=== PATIENT | male | born 1970 | race Caucasian/White ===

== ENCOUNTER 2016-12-08 15:20 | Inpatient (IN) | payer OTHER ==
[2016-12-08 17:38] VITALS: BMI 31.9
--- NOTE | 2016-12-08 17:59 | HP ---
Admission ROS [facility] Chief Complaint: Alcohol dependence Allergies/Adverse Reactions: Allergies Allergy/AdvReac Type Severity Reaction Status Date / Time bupropion HCl Allergy Severe Rash Verified 12/08/16 17:52 [From Wellbutrin] History of Present Illness: 46 years old male with history of alcohol and nicotine dependence is admitted for rehab. Patient has medical history of Asthma, GERD, Depression, Anxiety disorder and suicide attempt in 2008. Patient denies suicidal ideation at this time. Exam Limitations: No Limitations - Ebola screening Have you traveled outside of the country in the last 21 days: No (N) Have you had contact with anyone from an Ebola affected area: No Have you been sick,other than usual withdrawal symptoms: No Do you have a fever: No - Review of Systems Constitutional: No Symptoms Reported EENT: reports: No Symptoms Reported Respiratory: reports: No Symptoms reported Cardiac: reports: No Symptoms Reported GI: reports: No Symptoms Reported : reports: No Symptoms Reported Musculoskeletal: reports: No Symptoms Reported Integumentary: reports: No Symptoms Reported Neuro: reports: No Symptoms reported Endocrine: reports: No Symptoms Reported Hematology: reports: No Symptoms Reported Psychiatric: reports: No Sypmtoms Reported, Mood/Affect Appropiate, Orientated x3 Other Systems: Reviewed and Negative Patient History - Patient Medical History Hx Anemia: No Hx Asthma: Yes (MDI and singulair) Hx Chronic Obstructive Pulmonary Disease (COPD): No Hx Cancer: No Hx Cardiac Disorders: No Hx Congestive Heart Failure: No Hx Hypertension: No Hx Hypercholesterolemia: No HX Cerebrovascular Accident: No Hx Seizures: No Hx Diabetes: No Hx Gastrointestinal Disorders: Yes (GERD) Hx Liver Disease: No Hx Genitourinary Disorders: No Hx Sexually Transmitted Disorders: Yes (Genital Warts) Hx Renal Disease (ESRD): No Hx Thyroid Disease: No Hx Human Immunodeficiency Virus (HIV): No (Negative 2016) Hx Hepatitis C: No (Negative 2016) Hx Depression: Yes Hx Suicide Attempt: Yes (2008. Denies suicidal ideation) Hx Bipolar Disorder: No Hx Schizophrenia: No - Patient Surgical History Past Surgical History: No - PPD History Previous Implant?: Yes Documented Results: Negative w/o proof PPD to be Administered?: Yes - Reproductive History Patient is a Female of Child Bearing Age (11 -55 yrs old): No ([place]) - Smoking Cessation Smoking history: Current every day smoker Have you smoked in the past 12 months: Yes Aproximately how many cigarettes per day: 20 Hx Chewing Tobacco Use: No Initiated information on smoking cessation: Yes 'Breaking Loose' booklet given: 12/08/16 - Substance & Tx. History Hx Alcohol Use: Yes (Beer) Hx Substance Use: Yes (Cocaine) Substance Use Type: Alcohol, Cocaine Hx Substance Use Treatment: Yes ([facility] Outpatient treatment) - Substances Abused Alcohol Route: Oral Frequency: Daily Amount used: 2-3 20 ounce beers Age of first use: 37 Date of Last Use: 12/08/16 Cocaine Route: Smoking Frequency: 1-2 times per week Amount used: $40 Age of first use: 29 Date of Last Use: 12/05/16 Family Disease History - Family Disease History Family History: Denies Admission Physical Exam [facility] - Vital Signs Vital Signs: Vital Signs - 24 hr 12/08/16 17:35 Temperature 96.9 F L Pulse Rate 94 H Respiratory 18 Rate Blood Pressure 155/89 - Physical General Appearance: Yes: Within Normal Limits HEENTM: Yes: Within Normal Limits, EOMI, Normal ENT Inspection, ANGELICA Respiratory: Yes: Lungs Clear, Normal Breath Sounds Neck: Yes: Supple Breast: Yes: Breast Exam Deferred Cardiology: Yes: Regular Rhythm, Regular Rate, S1, S2 Abdominal: Yes: Normal Bowel Sounds, Soft Genitourinary: Yes: Within Normal Limits Back: Yes: Within Normal Limits Musculoskeletal: Yes: Within Normal Limits Extremities: Yes: Within Normal Limits Neurological: Yes: Fully Oriented, Alert, Normal Response Integumentary: Yes: Within Normal Limits Lymphatic: Yes: Within Normal Limits - Diagnostic (1) Alcohol dependence with uncomplicated withdrawal Current Visit: Yes Status: Chronic (2) Cocaine dependence, uncomplicated Current Visit: Yes Status: Chronic (3) GERD (gastroesophageal reflux disease) Current Visit: Yes Status: Chronic (4) Depression Current Visit: Yes Status: Chronic (5) Asthma Current Visit: Yes Status: Chronic Cleared for Admission [facility] - Detox or Rehab [facility] Level of Care: Observation Bed Claeared for Rehab Admission: Yes [facility] Breath Alcohol Content Breath Alcohol Content: 0 Urine Drug Screen - Results Drug Screen Negative: No Urine Drug Screen Results: RAUL-Cocaine Inpatient Rehab Admission - Initial Determination Are CD services needed?: Yes Free of communicable disease: Yes Not in need of hospitalization: Yes - Rehab Admission Criteria Previous failed treatment: Yes Poor recovery environment: Yes Comorbidities: Yes Lacks judgement: No Patient is meeting Inpatient Rehab admission criteria:: Yes
[2016-12-08] MEDS ORDERED: MAG HYDROX/AL HYDROX/SIMETH 30 ML UNIT-DOSE CUP PO PRN (23:15)
[2016-12-08] MEDS ORDERED: MAGNESIUM CITRATE 300 ML BOTTLE PO PRN (23:15)
[2016-12-08] MEDS ORDERED: MAGNESIUM HYDROX 2400MG/30ML ORAL SUSPENSION 30 ML CUP PO PRN (23:15)
[2016-12-08] MEDS ORDERED: P-EPHED 60MG/TRIPROLIDI 2.5MG TABLET PO PRN (23:15)
[2016-12-08] MEDS ORDERED: guaiFENesin/D-METHORPHAN HB 10 ML UNIT-DOSE CUPS PO PRN (23:15)
[2016-12-08] MEDS ORDERED: MENTHOL/PHENOL 1 EACH UD MM PRN (23:15)
[2016-12-08] MEDS ORDERED: LOPERAMIDE HCL 2 MG CAPSULE PO PRN (23:15)
[2016-12-08] MEDS ORDERED: hydrOXYzine PAMOATE 50 MG CAPSULE (FP) PO PRN (23:15)
[2016-12-08] MEDS ORDERED: NICOTINE POLACRILEX 2 MG GUM BUC PRN (23:24)
[2016-12-08] MEDS ORDERED: traZODone HCL 100 MG TABLET (FP) PO ONE (23:45)
[2016-12-08] MEDS ORDERED: TUBERCULIN PPD 5 TU/0.1ML VIAL ID ONE (23:52)
--- NOTE | 2016-12-09 06:48 | HP ---
Psychiatrist Admission - Data Date of interview: 12/09/16 Admission source: [facility] Identifying data: This is the first [facility] admission for this 46 years old single [place] male, father of a 21years old daughter, unemployed on public assistance, domiciled Medical History: Significant for bronchial asthma, GERD and a history of genital warts. Smokes cigarettes 1ppd Psychiatric History: Reports that his first psychiatric contact was in 2008 when he was admitted to [facility] in [place] for suicidal attempt by cutting his wrist. He was diagnosed with MDD, Anxiety and Borderline Personality Disorder and treated with medications. Reports receiving psychiatric outpatient treatment at [facility] and he is currently prescribed Prozac 60 mg po daily, Buspar 30 mg po BID, Gabapentin 800 mg po TID and Trazadone 100 mg po HS. Told copy writer that he was recently prescribed Naltrexone 25 mg po HS but has not started it yet. Reports history of 2 previous suicidal attempts both in 2008 by cutting his wrist(which led to [facility] inpatient admission) and ingesting pills. At present, reports feeling anxious and sleeping poorly Physical/Sexual Abuse/Trauma History: Denies history of verbal, physical or sexual abuse as well as DV relationship. No service Additional Comment: Reports history of multiple arrests including one felony conviction. Reports being currently on parole till February 2019 Vital Signs: Vital Signs - 24 hr 12/08/16 12/08/16 12/09/16 17:35 22:00 00:41 Temperature 96.9 F L 98.0 F Pulse Rate 94 H 77 Respiratory 18 18 18 Rate Blood Pressure 155/89 131/78 12/09/16 12/09/16 03:40 06:41 Temperature 97.1 F L Pulse Rate 82 Respiratory 18 18 Rate Blood Pressure 109/66 Allergies/Adverse Reactions: Allergies Allergy/AdvReac Type Severity Reaction Status Date / Time bupropion HCl Allergy Severe Rash Verified 12/08/16 17:52 [From Wellbutrin] Date of last physical exam: 12/08/16 Concur with the findings of this exam: Yes - Substance Abuse/Tx History Hx Alcohol Use: Yes Hx Substance Use: Yes Substance Use Type: Alcohol (Started drinking alcohol at age 37, consumes 2-3x 20oz of beer daily. Last drank on 12/08/16), Cocaine (Started smoking crack cocaine at age29, consumes $40 worth 1-2 times weekly. Last smoked on 12/05/16) Hx Substance Use Treatment: Yes (Attends [facility] outpatient program) Mental Status Exam - Mental Status Exam Alert and Oriented to: Time, Place, Person Cognitive Function: Fair Patient Appearance: Disheveled Mood: Anxious Affect: Constricted Patient Behavior: Cooperative Speech Pattern: Clear Voice Loudness: Normal Thought Process: Intact Thought Disorder: Not Present Hallucinations: Denies Suicidal Ideation: Denies Homicidal Ideation: Denies Insight/Judgement: Fair Sleep: Poorly Appetite: Good Muscle strength/Tone: Normal Gait/Station: Normal Psychiatric Findings - Problem List ([place] 1, 2,3) (1) Alcohol dependence Current Visit: Yes Status: Acute (2) Cocaine dependence Current Visit: Yes Status: Acute (3) Nicotine dependence Current Visit: Yes Status: Acute (4) MDD (major depressive disorder), recurrent episode Current Visit: Yes Status: Acute (5) Substance-induced anxiety disorder Current Visit: Yes Status: Acute (6) Substance-induced sleep disorder Current Visit: Yes Status: Acute (7) Asthma Current Visit: Yes Status: Chronic (8) GERD (gastroesophageal reflux disease) Current Visit: Yes Status: Chronic - Initial Treatment Plan Initial Treatment Plan: 1) Continue Prozac 60 mg po daily, Buspar 30 mg po BID, Gabapentin 800 mg po TID and Trazadone 100 mg po HS. 2) Monitor progress
[2016-12-09] MEDS: PRENATAL VITAMINS W/ FOLIC ACID TABLET (FP) PO SCH (09:43)
[2016-12-09] MEDS: RANITIDINE HCL 150 MG TABLET (FP) PO SCH ×2 (09:43→21:10)
[2016-12-09] MEDS: NICOTINE 14 MG/24 HOURS TOPICAL PATCH TD SCH (09:43)
[2016-12-09] MEDS: FLUoxetine HCL 20 MG CAPSULE (FP) PO SCH (11:06)
[2016-12-09] MEDS: GABAPENTIN 400 MG CAPSULE (FP) PO SCH ×3 (15:00→21:10)
[2016-12-09 16:43] LABS: MCH 31.3 pg (25.7-33.7); MCHC 34.2 g/dl (32.0-35.9); MEAN CELL VOLUME 91.4 fl (80-96); MEAN PLT VOLUME 8.5 fl (7.5-11.1); PLATELET COUNT 220 K/MM3 (134-434); RDW 12.9 % (11.9-15.9); WHITE BLOOD COUNT 8.8 K/mm3 (4.0-10.0)
[2016-12-09 16:57] LABS: ALBUMIN 3.3 g/dl (3.4-5.0); ANION GAP 9 (8-16); CALCIUM 8.6 mg/dL (8.5-10.1); CO2 28 mmol/L (21-32); CREATININE 0.9 mg/dL (0.7-1.3); GLUCOSE,RANDOM 186 mg/dL (74-106); SGOT/AST 13 U/L (15-37); SGPT/ALT 27 U/L (12-78)
[2016-12-09 16:59] LABS: ALK PHOS 100 U/L (45-117); BILIRUBIN,TOTAL 0.3 mg/dL (0.2-1.0); TOT PROT 6.6 g/dl (6.4-8.2)
[2016-12-09] MEDS: THIAMINE HCL 100 MG TABLET (FP) PO SCH (21:10)
[2016-12-09] MEDS ORDERED: PATIENT'S OWN MEDICATION (NON-FORMULARY) (Famotidine [Pepcid -] 20 MG) PO SCH (22:00)
[2016-12-10] MEDS: GABAPENTIN 400 MG CAPSULE (FP) PO SCH ×2 (06:29→14:07)
[2016-12-10] MEDS: RANITIDINE HCL 150 MG TABLET (FP) PO SCH ×2 (10:05→21:22)
[2016-12-10] MEDS: NICOTINE 14 MG/24 HOURS TOPICAL PATCH TD SCH (10:05)
[2016-12-10] MEDS: PRENATAL VITAMINS W/ FOLIC ACID TABLET (FP) PO SCH (10:05)
[2016-12-10] MEDS: FLUoxetine HCL 20 MG CAPSULE (FP) PO SCH (10:05)
--- NOTE | 2016-12-10 12:49 | EKG ---
Test Reason : Blood Pressure : / mmHG Vent. Rate : 079 BPM Atrial Rate : 079 BPM P-R Int : 144 ms QRS Dur : 090 ms QT Int : 384 ms P-R-T Axes : 060 050 049 degrees QTc Int : 440 ms NORMAL SINUS RHYTHM NORMAL ECG NO PREVIOUS ECGS AVAILABLE Confirmed by BARBARA SUN, KEVEN ([id number]) on 12/10/2016 12:49:07 PM Referred By: Confirmed By:KEVEN JIMENEZ MD
[2016-12-10] MEDS: ACETAMINOPHEN 325 MG TABLET (FP) PO PRN (14:06)
[2016-12-10] MEDS: THIAMINE HCL 100 MG TABLET (FP) PO SCH (21:22)
[2016-12-10] MEDS: GABAPENTIN 400 MG CAPSULE (FP) PO PRN (21:24)
[2016-12-11] MEDS: PRENATAL VITAMINS W/ FOLIC ACID TABLET (FP) PO SCH (10:08)
[2016-12-11] MEDS: NICOTINE 14 MG/24 HOURS TOPICAL PATCH TD SCH (10:09)
[2016-12-11] MEDS: FLUoxetine HCL 20 MG CAPSULE (FP) PO SCH (10:09)
[2016-12-11] MEDS: RANITIDINE HCL 150 MG TABLET (FP) PO SCH ×2 (10:09→21:23)
[2016-12-11] MEDS: GABAPENTIN 400 MG CAPSULE (FP) PO PRN ×2 (10:11→21:23)
[2016-12-11] MEDS: ACETAMINOPHEN 325 MG TABLET (FP) PO PRN (14:11)
[2016-12-11] MEDS: THIAMINE HCL 100 MG TABLET (FP) PO SCH (21:23)
[2016-12-12] MEDS: GABAPENTIN 400 MG CAPSULE (FP) PO PRN ×3 (07:00→21:20)
[2016-12-12] MEDS: PRENATAL VITAMINS W/ FOLIC ACID TABLET (FP) PO SCH (09:46)
[2016-12-12] MEDS: NICOTINE 14 MG/24 HOURS TOPICAL PATCH TD SCH (09:47)
[2016-12-12] MEDS: RANITIDINE HCL 150 MG TABLET (FP) PO SCH ×2 (09:47→21:19)
[2016-12-12] MEDS: FLUoxetine HCL 20 MG CAPSULE (FP) PO SCH (09:47)
[2016-12-12] MEDS ORDERED: ALBUTEROL SO4 18 GM HFA INHALER IH PRN (14:48)
[2016-12-12] MEDS: THIAMINE HCL 100 MG TABLET (FP) PO SCH (21:19)
[2016-12-13] MEDS: GABAPENTIN 400 MG CAPSULE (FP) PO PRN ×2 (06:15→16:59)
[2016-12-13] MEDS: RANITIDINE HCL 150 MG TABLET (FP) PO SCH ×2 (09:32→21:10)
[2016-12-13] MEDS: PRENATAL VITAMINS W/ FOLIC ACID TABLET (FP) PO SCH (09:32)
[2016-12-13] MEDS: FLUoxetine HCL 20 MG CAPSULE (FP) PO SCH (09:33)
[2016-12-13] MEDS: NICOTINE 14 MG/24 HOURS TOPICAL PATCH TD SCH (09:33)
[2016-12-13] MEDS: THIAMINE HCL 100 MG TABLET (FP) PO SCH (21:10)
[2016-12-13] MEDS: traZODone HCL 100 MG TABLET (FP) PO PRN (21:11)
[2016-12-14] MEDS: GABAPENTIN 400 MG CAPSULE (FP) PO PRN ×2 (06:52→14:13)
[2016-12-14] MEDS: FLUoxetine HCL 20 MG CAPSULE (FP) PO SCH (09:47)
[2016-12-14] MEDS: PRENATAL VITAMINS W/ FOLIC ACID TABLET (FP) PO SCH (09:47)
[2016-12-14] MEDS: RANITIDINE HCL 150 MG TABLET (FP) PO SCH ×2 (09:47→21:19)
[2016-12-14] MEDS: NICOTINE 14 MG/24 HOURS TOPICAL PATCH TD SCH (09:47)
[2016-12-14] MEDS: THIAMINE HCL 100 MG TABLET (FP) PO SCH (21:19)
[2016-12-14] MEDS: traZODone HCL 100 MG TABLET (FP) PO PRN (23:12)
[2016-12-15] MEDS: PRENATAL VITAMINS W/ FOLIC ACID TABLET (FP) PO SCH (09:41)
[2016-12-15] MEDS: RANITIDINE HCL 150 MG TABLET (FP) PO SCH ×2 (09:41→21:24)
[2016-12-15] MEDS: FLUoxetine HCL 20 MG CAPSULE (FP) PO SCH (09:41)
[2016-12-15] MEDS: GABAPENTIN 400 MG CAPSULE (FP) PO PRN ×2 (09:42→21:25)
[2016-12-15] MEDS: NICOTINE 14 MG/24 HOURS TOPICAL PATCH TD SCH (09:42)
[2016-12-15] MEDS: IBUPROFEN 400 MG TABLET (FP) PO PRN (18:58)
[2016-12-15] MEDS: THIAMINE HCL 100 MG TABLET (FP) PO SCH (21:24)
[2016-12-15] MEDS: traZODone HCL 100 MG TABLET (FP) PO PRN (23:47)
[2016-12-16] MEDS: FLUoxetine HCL 20 MG CAPSULE (FP) PO SCH (09:50)
[2016-12-16] MEDS: PRENATAL VITAMINS W/ FOLIC ACID TABLET (FP) PO SCH (09:50)
[2016-12-16] MEDS: RANITIDINE HCL 150 MG TABLET (FP) PO SCH ×2 (09:50→21:13)
[2016-12-16] MEDS: GABAPENTIN 400 MG CAPSULE (FP) PO PRN ×2 (09:50→21:13)
[2016-12-16] MEDS: NICOTINE 14 MG/24 HOURS TOPICAL PATCH TD SCH (09:51)
[2016-12-16] MEDS: THIAMINE HCL 100 MG TABLET (FP) PO SCH (21:13)
[2016-12-17] MEDS: NICOTINE 14 MG/24 HOURS TOPICAL PATCH TD SCH (09:46)
[2016-12-17] MEDS: RANITIDINE HCL 150 MG TABLET (FP) PO SCH ×2 (09:46→21:16)
[2016-12-17] MEDS: PRENATAL VITAMINS W/ FOLIC ACID TABLET (FP) PO SCH (09:46)
[2016-12-17] MEDS: FLUoxetine HCL 20 MG CAPSULE (FP) PO SCH (09:46)
[2016-12-17] MEDS: THIAMINE HCL 100 MG TABLET (FP) PO SCH (21:16)
[2016-12-17] MEDS: GABAPENTIN 400 MG CAPSULE (FP) PO PRN (21:16)
[2016-12-17] MEDS: IBUPROFEN 400 MG TABLET (FP) PO PRN (21:17)
[2016-12-17] MEDS: traZODone HCL 100 MG TABLET (FP) PO PRN (22:35)
[2016-12-18] MEDS ORDERED: AZITHROMYCIN 250 MG TABLET PO ONE (07:30)
--- NOTE | 2016-12-18 07:33 | PN ---
BHS Progress Note Note: ASKED TO SEE PT FOR C/O SORE THROAT. CLIENT REPORTS PAIN WHEN SWALLOWING. DENIES asked to see pt for c/o sore throat. pain when swallowing denies sob. fever, cough Last Vital Signs Temp Pulse Resp BP Pulse Ox 97.3 F L 84 18 120/74 12/18/16 06:33 12/18/16 06:33 12/18/16 06:33 12/18/16 06:33 neck + lad mouth mmm erythematous pharynx l- ctab pharyngitis start z pack
[2016-12-18] MEDS: RANITIDINE HCL 150 MG TABLET (FP) PO SCH ×2 (09:11→21:17)
[2016-12-18] MEDS: FLUoxetine HCL 20 MG CAPSULE (FP) PO SCH (09:11)
[2016-12-18] MEDS: PRENATAL VITAMINS W/ FOLIC ACID TABLET (FP) PO SCH (09:11)
[2016-12-18] MEDS: IBUPROFEN 400 MG TABLET (FP) PO PRN (09:12)
[2016-12-18] MEDS: NICOTINE 14 MG/24 HOURS TOPICAL PATCH TD SCH (09:13)
[2016-12-18] MEDS: GABAPENTIN 400 MG CAPSULE (FP) PO PRN ×2 (10:59→21:17)
[2016-12-18] MEDS: THIAMINE HCL 100 MG TABLET (FP) PO SCH (21:17)
[2016-12-18] MEDS: traZODone HCL 100 MG TABLET (FP) PO PRN (23:27)
[2016-12-19] MEDS: AZITHROMYCIN 250 MG TABLET PO SCH (07:12)
[2016-12-19] MEDS: GABAPENTIN 400 MG CAPSULE (FP) PO PRN ×2 (07:13→18:27)
[2016-12-19] MEDS: FLUoxetine HCL 20 MG CAPSULE (FP) PO SCH (09:54)
[2016-12-19] MEDS: PRENATAL VITAMINS W/ FOLIC ACID TABLET (FP) PO SCH (09:54)
[2016-12-19] MEDS: RANITIDINE HCL 150 MG TABLET (FP) PO SCH ×2 (09:54→21:20)
[2016-12-19] MEDS: NICOTINE 14 MG/24 HOURS TOPICAL PATCH TD SCH (09:55)
[2016-12-19] MEDS: THIAMINE HCL 100 MG TABLET (FP) PO SCH (21:20)
[2016-12-20] MEDS: traZODone HCL 100 MG TABLET (FP) PO PRN ×2 (00:17→23:25)
[2016-12-20] MEDS: AZITHROMYCIN 250 MG TABLET PO SCH (06:59)
[2016-12-20] MEDS: PRENATAL VITAMINS W/ FOLIC ACID TABLET (FP) PO SCH (09:40)
[2016-12-20] MEDS: FLUoxetine HCL 20 MG CAPSULE (FP) PO SCH (09:40)
[2016-12-20] MEDS: RANITIDINE HCL 150 MG TABLET (FP) PO SCH ×2 (09:40→21:11)
[2016-12-20] MEDS: NICOTINE 14 MG/24 HOURS TOPICAL PATCH TD SCH (09:41)
[2016-12-20] MEDS: GABAPENTIN 400 MG CAPSULE (FP) PO PRN (17:32)
[2016-12-20] MEDS: THIAMINE HCL 100 MG TABLET (FP) PO SCH (21:11)
[2016-12-21] MEDS: AZITHROMYCIN 250 MG TABLET PO SCH (06:52)
[2016-12-21] MEDS: GABAPENTIN 400 MG CAPSULE (FP) PO PRN ×2 (09:07→21:12)
[2016-12-21] MEDS: RANITIDINE HCL 150 MG TABLET (FP) PO SCH ×2 (09:46→21:12)
[2016-12-21] MEDS: PRENATAL VITAMINS W/ FOLIC ACID TABLET (FP) PO SCH (09:46)
[2016-12-21] MEDS: NICOTINE 14 MG/24 HOURS TOPICAL PATCH TD SCH (09:46)
[2016-12-21] MEDS: FLUoxetine HCL 20 MG CAPSULE (FP) PO SCH (09:46)
[2016-12-21] MEDS: traZODone HCL 100 MG TABLET (FP) PO PRN (21:13)
[2016-12-21] MEDS: THIAMINE HCL 100 MG TABLET (FP) PO SCH (21:13)
[2016-12-22] MEDS: AZITHROMYCIN 250 MG TABLET PO SCH (07:13)
[2016-12-22] MEDS: PRENATAL VITAMINS W/ FOLIC ACID TABLET (FP) PO SCH (09:30)
[2016-12-22] MEDS: FLUoxetine HCL 20 MG CAPSULE (FP) PO SCH (09:30)
[2016-12-22] MEDS: RANITIDINE HCL 150 MG TABLET (FP) PO SCH ×2 (09:30→21:19)
[2016-12-22] MEDS: NICOTINE 14 MG/24 HOURS TOPICAL PATCH TD SCH (09:31)
[2016-12-22] MEDS: GABAPENTIN 400 MG CAPSULE (FP) PO PRN ×2 (09:31→18:17)
[2016-12-22] MEDS: THIAMINE HCL 100 MG TABLET (FP) PO SCH (21:19)
[2016-12-22] MEDS: traZODone HCL 100 MG TABLET (FP) PO PRN (22:43)
[2016-12-23] MEDS: FLUoxetine HCL 20 MG CAPSULE (FP) PO SCH (09:32)
[2016-12-23] MEDS: NICOTINE 14 MG/24 HOURS TOPICAL PATCH TD SCH (09:32)
[2016-12-23] MEDS: PRENATAL VITAMINS W/ FOLIC ACID TABLET (FP) PO SCH (09:32)
[2016-12-23] MEDS: RANITIDINE HCL 150 MG TABLET (FP) PO SCH ×2 (09:32→21:08)
[2016-12-23] MEDS: GABAPENTIN 400 MG CAPSULE (FP) PO PRN ×2 (09:34→21:09)
--- NOTE | 2016-12-23 15:07 | PN ---
BHS Progress Note (SOAP) Subjective: c/o bleeding pinky left finger, no h/o trauma Objective: 12/23/16 15:05 Laboratory Tests 12/09/16 12/09/16 12/09/16 08:30 08:30 08:30 WBC 8.8 RBC 4.54 Hgb 14.2 Hct 41.5 MCV 91.4 MCH 31.3 MCHC 34.2 RDW 12.9 Plt Count 220 MPV 8.5 Sodium 139 Potassium 4.2 Chloride 102 Carbon Dioxide 28 Anion Gap 9 BUN 11 Creatinine 0.9 Creat Clearance w eGFR > 60 POC Glucometer Random Glucose 186 H Calcium 8.6 Total Bilirubin 0.3 AST 13 L ALT 27 Alkaline Phosphatase 100 Total Protein 6.6 Albumin 3.3 L RPR Titer Nonreactive 12/10/16 12/11/16 12/13/16 16:51 06:11 06:15 WBC RBC Hgb Hct MCV MCH MCHC RDW Plt Count MPV Sodium Potassium Chloride Carbon Dioxide Anion Gap BUN Creatinine Creat Clearance w eGFR POC Glucometer 105 109 110 Random Glucose Calcium Total Bilirubin AST ALT Alkaline Phosphatase Total Protein Albumin RPR Titer 12/14/16 12/16/16 06:03 06:27 WBC RBC Hgb Hct MCV MCH MCHC RDW Plt Count MPV Sodium Potassium Chloride Carbon Dioxide Anion Gap BUN Creatinine Creat Clearance w eGFR POC Glucometer 101 102 Random Glucose Calcium Total Bilirubin AST ALT Alkaline Phosphatase Total Protein Albumin RPR Titer Vital Signs - 24 hr 12/23/16 12/23/16 12/23/16 00:30 03:30 06:36 Temperature 97.3 F L Pulse Rate 65 Respiratory 18 18 18 Rate Blood Pressure 122/72 elevated blood sugar Assessment: 12/23/16 15:05 no erythema or infection, possible torn cuticle Plan: bacitracin to wound, dietary counseling regarding diet and blood sugar, wt loss and exercise
[2016-12-23] MEDS: BACITRACIN 0.9 GM PACKET TP SCH (15:32)
[2016-12-23] MEDS: THIAMINE HCL 100 MG TABLET (FP) PO SCH (21:08)
[2016-12-23] MEDS: traZODone HCL 100 MG TABLET (FP) PO PRN (23:20)
[2016-12-24] MEDS: RANITIDINE HCL 150 MG TABLET (FP) PO SCH ×2 (09:40→21:06)
[2016-12-24] MEDS: FLUoxetine HCL 20 MG CAPSULE (FP) PO SCH (09:40)
[2016-12-24] MEDS: BACITRACIN 0.9 GM PACKET TP SCH (09:40)
[2016-12-24] MEDS: PRENATAL VITAMINS W/ FOLIC ACID TABLET (FP) PO SCH (09:40)
[2016-12-24] MEDS: GABAPENTIN 400 MG CAPSULE (FP) PO PRN ×2 (09:41→20:06)
[2016-12-24] MEDS: NICOTINE 14 MG/24 HOURS TOPICAL PATCH TD SCH (09:41)
[2016-12-24 10:01] LABS: EOSINOPHIL 8.4 % (0-4.5); MCH 30.3 pg (25.7-33.7); MCHC 33.1 g/dl (32.0-35.9); MEAN CELL VOLUME 91.4 fl (80-96); MEAN PLT VOLUME 8.4 fl (7.5-11.1); NEUTROPHILS 54.8 % (42.8-82.8); PLATELET COUNT 259 K/MM3 (134-434); RDW 12.5 % (11.9-15.9); WHITE BLOOD COUNT 11.4 K/mm3 (4.0-10.0)
--- NOTE | 2016-12-24 15:41 | PN ---
BHS Progress Note (SOAP) Subjective: brbpr has been occurring, some stinging around anus Objective: 12/24/16 15:40 Laboratory Tests 12/09/16 12/09/16 12/09/16 08:30 08:30 08:30 WBC 8.8 RBC 4.54 Hgb 14.2 Hct 41.5 MCV 91.4 MCH 31.3 MCHC 34.2 RDW 12.9 Plt Count 220 MPV 8.5 Neutrophils % Lymphocytes % Monocytes % Eosinophils % Basophils % Sodium 139 Potassium 4.2 Chloride 102 Carbon Dioxide 28 Anion Gap 9 BUN 11 Creatinine 0.9 Creat Clearance w eGFR > 60 POC Glucometer Random Glucose 186 H Calcium 8.6 Total Bilirubin 0.3 AST 13 L ALT 27 Alkaline Phosphatase 100 Total Protein 6.6 Albumin 3.3 L RPR Titer Nonreactive 12/10/16 12/11/16 12/13/16 16:51 06:11 06:15 WBC RBC Hgb Hct MCV MCH MCHC RDW Plt Count MPV Neutrophils % Lymphocytes % Monocytes % Eosinophils % Basophils % Sodium Potassium Chloride Carbon Dioxide Anion Gap BUN Creatinine Creat Clearance w eGFR POC Glucometer 105 109 110 Random Glucose Calcium Total Bilirubin AST ALT Alkaline Phosphatase Total Protein Albumin RPR Titer 12/14/16 12/16/16 12/24/16 06:03 06:27 07:00 WBC 11.4 H RBC 4.91 Hgb 14.9 Hct 44.9 MCV 91.4 MCH 30.3 MCHC 33.1 RDW 12.5 Plt Count 259 MPV 8.4 Neutrophils % 54.8 Lymphocytes % 27.5 Monocytes % 8.3 Eosinophils % 8.4 H Basophils % 1.0 Sodium Potassium Chloride Carbon Dioxide Anion Gap BUN Creatinine Creat Clearance w eGFR POC Glucometer 101 102 Random Glucose Calcium Total Bilirubin AST ALT Alkaline Phosphatase Total Protein Albumin RPR Titer Assessment: 12/24/16 15:40 as per history, anal fissure, anulsol orfdered, f/u PCP when discharged hb stable
[2016-12-24] MEDS: HYDROCORTISONE 2.5% TOPICAL CREAM 30 GM TUBE TP SCH (16:46)
[2016-12-24] MEDS: THIAMINE HCL 100 MG TABLET (FP) PO SCH (21:06)
[2016-12-24] MEDS: traZODone HCL 100 MG TABLET (FP) PO PRN (23:46)
[2016-12-25] MEDS: GABAPENTIN 400 MG CAPSULE (FP) PO PRN ×2 (08:24→18:43)
[2016-12-25] MEDS: FLUoxetine HCL 20 MG CAPSULE (FP) PO SCH (09:48)
[2016-12-25] MEDS: RANITIDINE HCL 150 MG TABLET (FP) PO SCH ×2 (09:49→21:10)
[2016-12-25] MEDS: BACITRACIN 0.9 GM PACKET TP SCH (09:49)
[2016-12-25] MEDS: HYDROCORTISONE 2.5% TOPICAL CREAM 30 GM TUBE TP SCH (09:49)
[2016-12-25] MEDS: PRENATAL VITAMINS W/ FOLIC ACID TABLET (FP) PO SCH (09:50)
[2016-12-25] MEDS: NICOTINE 14 MG/24 HOURS TOPICAL PATCH TD SCH (09:50)
--- NOTE | 2016-12-25 16:18 | PN ---
BHS Progress Note (SOAP) Subjective: cut finger left index with scissor now sore Objective: 12/25/16 16:16 Vital Signs - 24 hr 12/25/16 12/25/16 12/25/16 00:30 03:30 06:31 Temperature 97.3 F L Pulse Rate 83 Respiratory 16 16 18 Rate Blood Pressure 125/85 sysuperficial lesion, no erythema bleeding or signs of infection Assessment: 12/25/16 16:17 scissor traum bandaid and bacitracin, occrrence report completed as per nursing request
[2016-12-25] MEDS: THIAMINE HCL 100 MG TABLET (FP) PO SCH (21:10)
[2016-12-25] MEDS: traZODone HCL 100 MG TABLET (FP) PO PRN (23:11)
[2016-12-26] MEDS: GABAPENTIN 400 MG CAPSULE (FP) PO PRN ×2 (07:27→17:39)
[2016-12-26] MEDS: BACITRACIN 0.9 GM PACKET TP SCH (09:39)
[2016-12-26] MEDS: RANITIDINE HCL 150 MG TABLET (FP) PO SCH ×2 (09:39→21:04)
[2016-12-26] MEDS: FLUoxetine HCL 20 MG CAPSULE (FP) PO SCH (09:39)
[2016-12-26] MEDS: PRENATAL VITAMINS W/ FOLIC ACID TABLET (FP) PO SCH (09:39)
[2016-12-26] MEDS: NICOTINE 14 MG/24 HOURS TOPICAL PATCH TD SCH (09:40)
[2016-12-26] MEDS: HYDROCORTISONE 2.5% TOPICAL CREAM 30 GM TUBE TP SCH (09:40)
[2016-12-26] MEDS: THIAMINE HCL 100 MG TABLET (FP) PO SCH (21:05)
[2016-12-27] MEDS: traZODone HCL 100 MG TABLET (FP) PO PRN (00:24)
[2016-12-27] MEDS: BACITRACIN 0.9 GM PACKET TP SCH (09:40)
[2016-12-27] MEDS: HYDROCORTISONE 2.5% TOPICAL CREAM 30 GM TUBE TP SCH (09:40)
[2016-12-27] MEDS: PRENATAL VITAMINS W/ FOLIC ACID TABLET (FP) PO SCH (09:40)
[2016-12-27] MEDS: FLUoxetine HCL 20 MG CAPSULE (FP) PO SCH (09:40)
[2016-12-27] MEDS: RANITIDINE HCL 150 MG TABLET (FP) PO SCH ×2 (09:40→21:06)
[2016-12-27] MEDS: NICOTINE 14 MG/24 HOURS TOPICAL PATCH TD SCH (09:40)
[2016-12-27] MEDS: GABAPENTIN 400 MG CAPSULE (FP) PO PRN ×2 (09:41→19:57)
[2016-12-27] MEDS: THIAMINE HCL 100 MG TABLET (FP) PO SCH (21:06)
[2016-12-28] MEDS: traZODone HCL 100 MG TABLET (FP) PO PRN ×2 (00:11→23:24)
[2016-12-28] MEDS: NICOTINE 14 MG/24 HOURS TOPICAL PATCH TD SCH (09:41)
[2016-12-28] MEDS: FLUoxetine HCL 20 MG CAPSULE (FP) PO SCH (09:41)
[2016-12-28] MEDS: GABAPENTIN 400 MG CAPSULE (FP) PO PRN ×2 (09:41→17:16)
[2016-12-28] MEDS: PRENATAL VITAMINS W/ FOLIC ACID TABLET (FP) PO SCH (09:41)
[2016-12-28] MEDS: HYDROCORTISONE 2.5% TOPICAL CREAM 30 GM TUBE TP SCH (09:41)
[2016-12-28] MEDS: BACITRACIN 0.9 GM PACKET TP SCH (09:41)
[2016-12-28] MEDS: RANITIDINE HCL 150 MG TABLET (FP) PO SCH ×2 (09:41→21:11)
[2016-12-28] MEDS: THIAMINE HCL 100 MG TABLET (FP) PO SCH (21:11)
[2016-12-29 06:47] VITALS: BP 136/88; PULSE 73; TEMP 97.5
[2016-12-29] MEDS: GABAPENTIN 400 MG CAPSULE (FP) PO PRN (08:24)
--- NOTE | 2016-12-29 09:35 | PN ---
Psychiatric Progress Note Vital Signs: Vital Signs Period Temp Pulse Resp BP Sys/Davis Pulse Ox Last 24 Hr 97.5 F 73 18-18 136/88 Date of Session: 12/29/16 Chief Complaint:: discharge visit HPI: Patient has addressed alcohol cocaine, nicotine dependence comorbid MDD, substance induced sleep and anxiety disorder. Current Medications: Active Medications Generic Name Dose Route Start Last Admin Trade Name Freq PRN Reason Stop Dose Admin Acetaminophen 650 mg 12/08/16 23:15 12/11/16 14:11 Tylenol - PO 650 mg Q4H PRN Administration PAIN Al Hydroxide/Mg Hydroxide 30 ml 12/08/16 23:15 12/28/16 10:44 Mylanta Oral Suspension - PO 30 ml Q6H PRN Administration DYSPEPSIA Albuterol Sulfate 2 puff 12/12/16 14:48 Ventolin Hfa Inhaler - IH Q4H PRN SHORT OF BREATH/WHEEZING Bacitracin 0.9 gm 12/23/16 15:15 12/28/16 09:41 Bacitracin - TP 0.9 gm DAILY MARÍA Administration Buspirone HCl 30 mg 12/09/16 10:15 12/28/16 21:11 Buspar - PO 30 mg BID MARÍA Administration Eucalyptus/Menthol/Phenol/Sorbitol 1 each 12/08/16 23:15 Cepastat Lozenge - MM Q4H PRN SORE THROAT Fluoxetine HCl 60 mg 12/09/16 10:15 12/28/16 09:41 Prozac - PO 60 mg DAILY MARÍA Administration Gabapentin 800 mg 12/10/16 15:38 12/29/16 08:24 Neurontin - PO 800 mg TID PRN Administration ANXIETY Guaifenesin 10 ml 12/08/16 23:15 Robitussin Dm - PO Q6H PRN COUGH Hydrocortisone 1 applic 12/24/16 16:00 12/28/16 09:41 Anusol 2.5% Hc Cream - TP 1 applic DAILY MARÍA Administration Hydroxyzine Pamoate 50 mg 12/08/16 23:15 Vistaril - PO Q4H PRN AGITATION Ibuprofen 400 mg 12/08/16 23:15 12/18/16 09:12 Motrin - PO 400 mg Q6H PRN Administration SEVERE PAIN Loperamide HCl 4 mg 12/08/16 23:15 Imodium - PO Q6H PRN DIARRHEA Magnesium Citrate 300 ml 12/08/16 23:15 Citroma - PO Q48H PRN CONSTIPATION Magnesium Hydroxide 30 ml 12/08/16 23:15 Milk Of Magnesia - PO DAILY PRN CONSTIPATION Nicotine 14 mg 12/09/16 10:00 12/28/16 09:41 Nicoderm Patch - TD Not Given DAILY MARÍA Nicotine Polacrilex 2 mg 12/08/16 23:24 Nicorette Gum - BUC Q2H PRN NICOTINE REPLACEMENT RX Multivit/Folic Acid/Iron 1 tab 12/09/16 10:00 12/28/16 09:41 Vitamins ([facility]) - PO 1 tab DAILY MARÍA Administration Pseudoephedrine/Triprolidine 1 combo 12/08/16 23:15 Actifed - PO TID PRN NASAL CONGESTION Ranitidine HCl 150 mg 12/09/16 10:00 12/28/16 21:11 Zantac - PO 150 mg BID MARÍA Administration Thiamine HCl 100 mg 12/09/16 22:00 12/28/16 21:11 Vitamin B1 - PO 100 mg HS MARÍA Administration Trazodone HCl 100 mg 12/09/16 10:15 12/28/16 23:24 Desyrel - PO 100 mg HS PRN Administration INSOMNIA Current Side Effect: No Lab tests ordered: No Lab tests reviewed: Yes Provider note:: Patient has completed today his treatment and met his goals, he will [facility] his psychiatrist . He gained insights into his dependence and motivated to continue maintain abstinence. Patient daniel stephanie finding his current medication effective, states he feels better, medications well tolerated, scripts provided for 30 days, patient was encouraged to take medications as directed and continue his sobriety, patient is stable for discharge today. Total face to face time:: 20 Mental Status Exam - Mental Status Exam Alert and Oriented to: Time, Place, Person Cognitive Function: Good Patient Appearance: Well Groomed Affect: Appropriate, Normal Range Patient Behavior: Inappropriate, Appropriate, Cooperative Speech Pattern: Clear, Appropriate Voice Loudness: Normal Thought Process: Goal Oriented Thought Disorder: Not Present Hallucinations: None Suicidal Ideation: Denies Homicidal Ideation: Denies Insight/Judgement: Fair Sleep: Fair Appetite: Fair Muscle strength/Tone: Normal Gait/Station: Normal Psychiatric Treatment Plan - Problem List (1) Alcohol dependence Current Visit: Yes (2) Cocaine dependence Current Visit: Yes (3) MDD (major depressive disorder), recurrent episode Current Visit: Yes (4) Nicotine dependence Current Visit: Yes (5) Substance-induced anxiety disorder Current Visit: Yes (6) Substance-induced sleep disorder Current Visit: Yes
[2016-12-29] MEDS: BACITRACIN 0.9 GM PACKET TP SCH (09:50)
[2016-12-29] MEDS: FLUoxetine HCL 20 MG CAPSULE (FP) PO SCH (09:50)
[2016-12-29] MEDS: PRENATAL VITAMINS W/ FOLIC ACID TABLET (FP) PO SCH (09:50)
[2016-12-29] MEDS: HYDROCORTISONE 2.5% TOPICAL CREAM 30 GM TUBE TP SCH (09:50)
[2016-12-29] MEDS: NICOTINE 14 MG/24 HOURS TOPICAL PATCH TD SCH (09:52)
[2016-12-29] MEDS: RANITIDINE HCL 150 MG TABLET (FP) PO SCH (16:01)
== END 2016-12-29 10:40 | disposition home or self-care (01) | DRG 772 ==
LOC: YASAS 15:20 → Y5N 20:11
PROVIDERS: ADMIT Psychiatry & Neurology Psychiatry; ATTEND Psychiatry & Neurology Psychiatry
PROC: HZ42ZZZ Group Counseling for Substance Abuse Treatment, Cognitive-Behavioral (ICD-10-PCS; principal; 2016-12-08)
DX: F10.20 Alcohol dependence, uncomplicated (principal); F14.20 Cocaine dependence, uncomplicated; F17.210 Nicotine dependence, cigarettes, uncomplicated; F33.2 Major depressive disorder, recurrent severe without psychotic features; F19.280 Other psychoactive substance dependence with psychoactive substance-induced anxiety disorder; F19.282 Other psychoactive substance dependence with psychoactive substance-induced sleep disorder; J45.909 Unspecified asthma, uncomplicated; K21.9 Gastro-esophageal reflux disease without esophagitis; Z87.438 Personal history of other diseases of male genital organs; Z91.5 Personal history of self-harm
CPT/HCPCS: 36415; 80053; 85025; 85027; 86593; 93005; 93010

== ENCOUNTER 2017-10-17 11:11 | Inpatient (IN) | payer OTHER ==
[2017-10-17 13:10] VITALS: BMI 32.2
--- NOTE | 2017-10-17 13:53 | HP ---
CIWA Score - CIWA Score Nausea/Vomitin-Mild Nausea/No Vomiting Muscle Tremors: 4-Moderate,w/Arms Extend Anxiety: 4-Mod. Anxious/Guarded Agitation: 1-Slight > Activity Paroxysmal Sweats: 1-Minimal Palms Moist Orientation: 0-Oriented Tacttile Disturbances: 1-Very Mild Itch/Numbness Auditory Disturbances: 0-None Visual Disturbances: 1-Very Mild Sensitivity Headache: 2-Mild CIWA-Ar Total Score: 15 Admission ROS S - HPI Chief Complaint: My safety patrol officer said I had to get help, detox. Allergies/Adverse Reactions: Allergies Allergy/AdvReac Type Severity Reaction Status Date / Time bupropion HCl Allergy Severe Rash Verified 10/17/17 13:32 [From Wellbutrin] History of Present Illness: 47 yo gentleman here for detox from alcohol - longest time sober when in longterm for 8 months. History of detox, rehab and 90 day residential treatment. Denies seizures, does have black outs. Exam Limitations: Clinical Condition - Ebola screening Have you traveled outside of the country in the last 21 days: No (N) Have you had contact with anyone from an Ebola affected area: No Have you been sick,other than usual withdrawal symptoms: No Do you have a fever: No - Review of Systems Constitutional: Loss of Appetite, Changes in sleep EENT: reports: No Symptoms Reported Respiratory: reports: No Symptoms reported Cardiac: reports: No Symptoms Reported GI: reports: Nausea, Poor Fluid Intake, Indigestion, Abdominal cramping : reports: Frequency Musculoskeletal: reports: Other (right hand with fractured knuckle - no overt swelling, able to use hand) Integumentary: reports: Dryness Neuro: reports: Tremors Endocrine: reports: No Symptoms Reported Hematology: reports: No Symptoms Reported Psychiatric: reports: Judgement Intact, Mood/Affect Appropiate, Orientated x3, Anxious Other Systems: Reviewed and Negative Patient History - Patient Medical History Hx Anemia: No Hx Asthma: Yes (MDI and singulair) Hx Chronic Obstructive Pulmonary Disease (COPD): No Hx Cancer: No Hx Cardiac Disorders: No Hx Congestive Heart Failure: No Hx Hypertension: No Hx Hypercholesterolemia: No HX Cerebrovascular Accident: No Hx Seizures: No Hx Diabetes: No Hx Gastrointestinal Disorders: No (GERD sometimes) Hx Liver Disease: No Hx Genitourinary Disorders: No Hx Sexually Transmitted Disorders: No Hx Renal Disease (ESRD): No Hx Thyroid Disease: No Hx Human Immunodeficiency Virus (HIV): No (Negative 2016) Hx Hepatitis C: No (Negative 2016) Hx Depression: Yes (with anxiety; hospitalized 2008, on meds) Hx Suicide Attempt: Yes (2009 - hospitalzied) Hx Bipolar Disorder: No Hx Schizophrenia: No Other Medical History: fractured right knuckle July 2017 - needs surgery - Patient Surgical History Past Surgical History: Yes Other Surgical History: broken nose 1979 - PPD History Previous Implant?: Yes Documented Results: Negative w/proof Implanted On Prior [facility] Admission?: Yes Date: 12/10/16 PPD to be Administered?: Yes - Reproductive History Patient is a Female of Child Bearing Age (11 -55 yrs old): No (male) - Smoking Cessation Smoking history: Current every day smoker Have you smoked in the past 12 months: Yes Aproximately how many cigarettes per day: 20 Hx Chewing Tobacco Use: No Initiated information on smoking cessation: Yes 'Breaking Loose' booklet given: 10/17/17 - Substance & Tx. History Hx Alcohol Use: Yes Hx Substance Use: Yes Substance Use Type: Alcohol, Cocaine Hx Substance Use Treatment: Yes (detox, rehab) - Substances Abused Cocaine Route: Smoking Frequency: 3-6 times per week Amount used: $60.00 Age of first use: 46 Date of Last Use: 10/17/17 Alcohol Route: Oral Frequency: Daily Amount used: three 24 oz beers; Age of first use: 37 Date of Last Use: 10/17/17 Family Disease History - Family Disease History Family History: Denies Admission Physical Exam [facility] - Vital Signs Vital Signs: Vital Signs - 24 hr 10/17/17 13:09 Temperature 97.7 F Pulse Rate 83 Respiratory 20 Rate Blood Pressure 145/80 - Physical General Appearance: Yes: Nourished, Appropriately Dressed, Moderate Distress, Tremorous, Anxious HEENTM: Yes: EOMI, Hearing grossly Normal, Normocephalic, Normal Voice, Pharynx Normal Respiratory: Yes: Normal Breath Sounds, No Respiratory Distress Neck: Yes: No masses,lesions,Nodules Breast: Yes: Breast Exam Deferred Cardiology: Yes: Regular Rhythm, Regular Rate Abdominal: Yes: Non Tender, Soft Genitourinary: Yes: Frequency Back: Yes: Normal Inspection Musculoskeletal: Yes: full range of Motion, Gait Steady, Other (fractured right hand - mild deformity) Extremities: Yes: Other (mild deformity of right hand due to fractured knuckle ( done 2 months ago, for surgery in future)) Neurological: Yes: Fully Oriented, Alert, Motor Strength 5/5, Normal Mood/Affect , Normal Response Integumentary: Yes: Normal Color, Warm Lymphatic: Yes: Within Normal Limits - Diagnostic (1) Alcohol dependence with uncomplicated withdrawal Current Visit: Yes Status: Chronic (2) Cocaine dependence, uncomplicated Current Visit: Yes Status: Chronic (3) Nicotine dependence Current Visit: Yes Status: Acute Qualifiers: Nicotine product type: cigarettes Substance use status: uncomplicated Qualified Code(s): F17.210 - Nicotine dependence, cigarettes, uncomplicated (4) Obesity (BMI 30.0-34.9) Current Visit: Yes Status: Chronic Cleared for Admission [facility] - Detox or Rehab [facility] Level of Care: Medically Managed Detox Regimen/Protocol: Librium S Breath Alcohol Content Breath Alcohol Content: 0.009 Urine Drug Screen - Results Drug Screen Negative: No Urine Drug Screen Results: RAUL-Cocaine
[2017-10-17] MEDS ORDERED: chlordiazePOXIDE HCL 25 MG CAPSULE PO PRN (14:16)
[2017-10-17] MEDS ORDERED: guaiFENesin/D-METHORPHAN HB 10 ML UNIT-DOSE CUPS PO PRN (14:16)
[2017-10-17] MEDS ORDERED: MAGNESIUM CITRATE 300 ML BOTTLE PO PRN (14:16)
[2017-10-17] MEDS ORDERED: LOPERAMIDE HCL 2 MG CAPSULE PO PRN (14:16)
[2017-10-17] MEDS ORDERED: MENTHOL/PHENOL 1 EACH UD MM PRN (14:16)
[2017-10-17] MEDS ORDERED: IBUPROFEN 400 MG TABLET (FP) PO PRN (14:16)
[2017-10-17] MEDS ORDERED: MAGNESIUM HYDROX 2400MG/30ML ORAL SUSPENSION 30 ML CUP PO PRN (14:16)
[2017-10-17] MEDS ORDERED: P-EPHED 60MG/TRIPROLIDI 2.5MG TABLET PO PRN (14:16)
[2017-10-17] MEDS ORDERED: ACETAMINOPHEN 325 MG TABLET (FP) PO PRN (14:16)
[2017-10-17] MEDS ORDERED: chlordiazePOXIDE HCL 25 MG CAPSULE PO ONE (14:45)
[2017-10-17] MEDS: NICOTINE 21 MG/24 HOURS TOPICAL PATCH TD SCH (15:20)
[2017-10-17 17:47] LABS: URINE APPEARANCE CLEAR; URINE BILIRUBIN NEGATIVE (<2.0 mg/dL); URINE COLOR STRAW; URINE GLUCOSE (UA) NEGATIVE (NEGATIVE); URINE KETONE NEGATIVE (NEGATIVE); URINE LEUK ESTERASE NEGATIVE (NEGATIVE); URINE NITRITE NEGATIVE (NEGATIVE); URINE PROTEIN NEGATIVE (NEGATIVE); URINE UROBILINOGEN NEGATIVE mg/dL (0.2-1.0)
[2017-10-17] MEDS: chlordiazePOXIDE HCL 25 MG CAPSULE PO SCH ×2 (18:27→22:14)
[2017-10-17] MEDS: MAG HYDROX/AL HYDROX/SIMETH 30 ML UNIT-DOSE CUP PO PRN (19:50)
[2017-10-17] MEDS ORDERED: ALBUTEROL SO4 0.083% IH SOL 2.5 MG/3 ML VIAL.NEB. NEB ONE (20:18)
--- NOTE | 2017-10-17 20:22 | PN ---
BHS Progress Note Note: Pt c/o SOB. Not in resp distress, no use of accessory muscles Neb tx stat and Albuterol INH prn ordered
[2017-10-17] MEDS ORDERED: MELATONIN 5 MG TABLETS PO PRN (22:00)
[2017-10-17] MEDS: MONTELUKAST NA 10 MG TABLET PO SCH (22:14)
[2017-10-17] MEDS: THIAMINE HCL 100 MG TABLET (FP) PO SCH (22:14)
[2017-10-18] MEDS: chlordiazePOXIDE HCL 25 MG CAPSULE PO SCH ×4 (06:03→22:02)
[2017-10-18] MEDS: PRENATAL VITAMINS W/ FOLIC ACID TABLET (FP) PO SCH (10:13)
[2017-10-18] MEDS: NICOTINE 21 MG/24 HOURS TOPICAL PATCH TD SCH ×2 (10:13→17:33)
[2017-10-18] MEDS: ALBUTEROL SO4 8 GM HFA INHALER IH PRN ×2 (10:14→21:56)
[2017-10-18 10:54] LABS: HEMATOCRIT 42.4 % (35.4-49); HEMOGLOBIN 14.1 GM/dL (11.7-16.9); MCH 30.4 pg (25.7-33.7); MCHC 33.3 g/dl (32.0-35.9); MEAN CELL VOLUME 91.3 fl (80-96); PLATELET COUNT 195 K/MM3 (134-434); RBC 4.64 M/mm3 (4.00-5.60); RDW 12.8 % (11.9-15.9); WHITE BLOOD COUNT 8.5 K/mm3 (4.0-10.0)
[2017-10-18 11:06] LABS: CHLORIDE 105 mmol/L (98-107); POTASSIUM 4.2 mmol/L (3.5-5.1); SODIUM 140 mmol/L (136-145)
[2017-10-18 11:17] LABS: ALBUMIN 3.1 g/dl (3.4-5.0); ALK PHOS 88 U/L (45-117); ANION GAP 10 MMOL/L (8-16); BILIRUBIN,TOTAL 0.3 mg/dL (0.2-1.0); BLOOD UREA NITROGEN 12 mg/dL (7-18); CALCIUM 8.6 mg/dL (8.5-10.1); CO2 25 mmol/L (21-32); CREATININE 0.9 mg/dL (0.7-1.3); GLUCOSE,RANDOM 102 mg/dL (74-106); SGOT/AST 22 U/L (15-37); SGPT/ALT 28 U/L (12-78); TOT PROT 6.8 g/dl (6.4-8.2)
--- NOTE | 2017-10-18 15:32 | PN ---
BHS Progress Note Note: Patient is unwilling to be interviewed
--- NOTE | 2017-10-18 15:40 | PN ---
[facility] CIWA - CIWA Score Nausea/Vomitin-Mild Nausea/No Vomiting Muscle Tremors: 4-Moderate,w/Arms Extend Anxiety: 3 Agitation: 3 Paroxysmal Sweats: 1-Minimal Palms Moist Orientation: 1-Uncertain about Date Tacttile Disturbances: 1-Very Mild Itch/Numbness Auditory Disturbances: 0-None Visual Disturbances: 0-None Headache: 0-None Present CIWA-Ar Total Score: 14 BHS Progress Note (SOAP) Subjective: tremor disoriented to date sweat restlessness anxiety Objective: 10/18/17 15:39 Vital Signs Temperature 98.1 F 10/18/17 15:20 Pulse Rate 70 10/18/17 15:20 Respiratory Rate 16 10/18/17 15:20 Blood Pressure 120/71 10/18/17 15:20 O2 Sat by Pulse Oximetry (%) Laboratory Last Values WBC 8.5 K/mm3 (4.0-10.0) 10/18/17 08:00 RBC 4.64 M/mm3 (4.00-5.60) 10/18/17 08:00 Hgb 14.1 GM/dL (11.7-16.9) 10/18/17 08:00 Hct 42.4 % (35.4-49) 10/18/17 08:00 MCV 91.3 fl (80-96) 10/18/17 08:00 MCH 30.4 pg (25.7-33.7) 10/18/17 08:00 MCHC 33.3 g/dl (32.0-35.9) 10/18/17 08:00 RDW 12.8 % (11.9-15.9) 10/18/17 08:00 Plt Count 195 K/MM3 (134-434) D 10/18/17 08:00 MPV 8.0 fl (7.5-11.1) 10/18/17 08:00 Sodium 140 mmol/L (136-145) 10/18/17 08:00 Potassium 4.2 mmol/L (3.5-5.1) 10/18/17 08:00 Chloride 105 mmol/L (98-107) 10/18/17 08:00 Carbon Dioxide 25 mmol/L (21-32) 10/18/17 08:00 Anion Gap 10 MMOL/L (8-16) 10/18/17 08:00 BUN 12 mg/dL (7-18) 10/18/17 08:00 Creatinine 0.9 mg/dL (0.7-1.3) 10/18/17 08:00 Creat Clearance w eGFR > 60 (>60) 10/18/17 08:00 Random Glucose 102 mg/dL (74-106) D 10/18/17 08:00 Calcium 8.6 mg/dL (8.5-10.1) 10/18/17 08:00 Total Bilirubin 0.3 mg/dL (0.2-1.0) 10/18/17 08:00 AST 22 U/L (15-37) D 10/18/17 08:00 ALT 28 U/L (12-78) 10/18/17 08:00 Alkaline Phosphatase 88 U/L (45-117) 10/18/17 08:00 Total Protein 6.8 g/dl (6.4-8.2) 10/18/17 08:00 Albumin 3.1 g/dl (3.4-5.0) L 10/18/17 08:00 Urine Color Straw 10/17/17 14:29 Urine Appearance Clear 10/17/17 14:29 Urine pH 5.0 (5.0-8.0) 10/17/17 14:29 Ur Specific [place] 1.005 (1.001-1.035) 10/17/17 14:29 Urine Protein Negative (NEGATIVE) 10/17/17 14:29 Urine Glucose (UA) Negative (NEGATIVE) 10/17/17 14:29 Urine Ketones Negative (NEGATIVE) 10/17/17 14:29 Urine Blood Negative (NEGATIVE) 10/17/17 14:29 Urine Nitrite Negative (NEGATIVE) 10/17/17 14:29 Urine Bilirubin Negative (<2.0 mg/dL) 10/17/17 14:29 Urine Urobilinogen Negative mg/dL (0.2-1.0) 10/17/17 14:29 Ur Leukocyte Esterase Negative (NEGATIVE) 10/17/17 14:29 RPR Titer Nonreactive (NONREACTIVE) 10/18/17 08:00 lab noted Assessment: 10/18/17 15:39 withdrawal sx Plan: continue detox
[2017-10-18] MEDS: MONTELUKAST NA 10 MG TABLET PO SCH (21:54)
[2017-10-18] MEDS: THIAMINE HCL 100 MG TABLET (FP) PO SCH (21:54)
[2017-10-19] MEDS: MAG HYDROX/AL HYDROX/SIMETH 30 ML UNIT-DOSE CUP PO PRN (00:38)
[2017-10-19] MEDS: chlordiazePOXIDE HCL 25 MG CAPSULE PO SCH ×2 (06:16→10:11)
[2017-10-19] MEDS: NICOTINE 21 MG/24 HOURS TOPICAL PATCH TD SCH (10:11)
[2017-10-19] MEDS: PRENATAL VITAMINS W/ FOLIC ACID TABLET (FP) PO SCH (10:11)
--- NOTE | 2017-10-19 11:24 | EKG ---
Test Reason : Blood Pressure : / mmHG Vent. Rate : 081 BPM Atrial Rate : 081 BPM P-R Int : 148 ms QRS Dur : 090 ms QT Int : 380 ms P-R-T Axes : 057 044 051 degrees QTc Int : 441 ms NORMAL SINUS RHYTHM NORMAL ECG WHEN COMPARED WITH ECG OF 08-DEC-2016 22:42, NO SIGNIFICANT CHANGE WAS FOUND Confirmed by CLAUDIO SCHOFIELD MD ([id number]) on 10/19/2017 11:24:29 AM Referred By: Confirmed By:CLAUDIO SCHOFIELD MD
--- NOTE | 2017-10-19 11:34 | PN ---
S CIWA - CIWA Score Nausea/Vomitin-Mild Nausea/No Vomiting Muscle Tremors: 4-Moderate,w/Arms Extend Anxiety: 3 Agitation: 3 Paroxysmal Sweats: 1-Minimal Palms Moist Orientation: 0-Oriented Tacttile Disturbances: 0-None Auditory Disturbances: 0-None Visual Disturbances: 0-None Headache: 0-None Present CIWA-Ar Total Score: 12 BHS Progress Note (SOAP) Subjective: sweat tremor anxiety trouble sleep at night Objective: 10/19/17 11:33 Vital Signs Temperature 98.3 F 10/19/17 09:25 Pulse Rate 79 10/19/17 09:25 Respiratory Rate 18 10/19/17 09:25 Blood Pressure 119/64 10/19/17 09:25 O2 Sat by Pulse Oximetry (%) Laboratory Last Values WBC 8.5 K/mm3 (4.0-10.0) 10/18/17 08:00 RBC 4.64 M/mm3 (4.00-5.60) 10/18/17 08:00 Hgb 14.1 GM/dL (11.7-16.9) 10/18/17 08:00 Hct 42.4 % (35.4-49) 10/18/17 08:00 MCV 91.3 fl (80-96) 10/18/17 08:00 MCH 30.4 pg (25.7-33.7) 10/18/17 08:00 MCHC 33.3 g/dl (32.0-35.9) 10/18/17 08:00 RDW 12.8 % (11.9-15.9) 10/18/17 08:00 Plt Count 195 K/MM3 (134-434) D 10/18/17 08:00 MPV 8.0 fl (7.5-11.1) 10/18/17 08:00 Sodium 140 mmol/L (136-145) 10/18/17 08:00 Potassium 4.2 mmol/L (3.5-5.1) 10/18/17 08:00 Chloride 105 mmol/L (98-107) 10/18/17 08:00 Carbon Dioxide 25 mmol/L (21-32) 10/18/17 08:00 Anion Gap 10 MMOL/L (8-16) 10/18/17 08:00 BUN 12 mg/dL (7-18) 10/18/17 08:00 Creatinine 0.9 mg/dL (0.7-1.3) 10/18/17 08:00 Creat Clearance w eGFR > 60 (>60) 10/18/17 08:00 Random Glucose 102 mg/dL (74-106) D 10/18/17 08:00 Calcium 8.6 mg/dL (8.5-10.1) 10/18/17 08:00 Total Bilirubin 0.3 mg/dL (0.2-1.0) 10/18/17 08:00 AST 22 U/L (15-37) D 10/18/17 08:00 ALT 28 U/L (12-78) 10/18/17 08:00 Alkaline Phosphatase 88 U/L (45-117) 10/18/17 08:00 Total Protein 6.8 g/dl (6.4-8.2) 10/18/17 08:00 Albumin 3.1 g/dl (3.4-5.0) L 10/18/17 08:00 Urine Color Straw 10/17/17 14:29 Urine Appearance Clear 10/17/17 14:29 Urine pH 5.0 (5.0-8.0) 10/17/17 14:29 Ur Specific [place] 1.005 (1.001-1.035) 10/17/17 14:29 Urine Protein Negative (NEGATIVE) 10/17/17 14:29 Urine Glucose (UA) Negative (NEGATIVE) 10/17/17 14:29 Urine Ketones Negative (NEGATIVE) 10/17/17 14:29 Urine Blood Negative (NEGATIVE) 10/17/17 14:29 Urine Nitrite Negative (NEGATIVE) 10/17/17 14:29 Urine Bilirubin Negative (<2.0 mg/dL) 10/17/17 14:29 Urine Urobilinogen Negative mg/dL (0.2-1.0) 10/17/17 14:29 Ur Leukocyte Esterase Negative (NEGATIVE) 10/17/17 14:29 RPR Titer Nonreactive (NONREACTIVE) 10/18/17 08:00 lab noted Assessment: 10/19/17 11:33 withdrawal sx Plan: continue detox
[2017-10-19] MEDS: chlordiazePOXIDE 5 MG CAPSULE PO SCH ×2 (17:51→23:30)
[2017-10-19] MEDS: hydrOXYzine PAMOATE 25 MG CAPSULE (FP) PO PRN (19:04)
[2017-10-19] MEDS: MONTELUKAST NA 10 MG TABLET PO SCH (23:29)
[2017-10-19] MEDS: THIAMINE HCL 100 MG TABLET (FP) PO SCH (23:30)
[2017-10-20] MEDS: chlordiazePOXIDE 5 MG CAPSULE PO SCH ×2 (06:06→10:36)
[2017-10-20] MEDS: PRENATAL VITAMINS W/ FOLIC ACID TABLET (FP) PO SCH (10:36)
[2017-10-20] MEDS: NICOTINE 21 MG/24 HOURS TOPICAL PATCH TD SCH (10:37)
--- NOTE | 2017-10-20 13:10 | PN ---
S Progress Note (SOAP) Subjective: less tremor sweat gi distress reported fracture right wrist two months ago treated at [facility] and scheduled for surgery follow up appointment on 11/02/17 Objective: 10/20/17 13:09 Vital Signs Temperature 97.9 F 10/20/17 09:25 Pulse Rate 69 10/20/17 09:25 Respiratory Rate 18 10/20/17 09:25 Blood Pressure 123/70 10/20/17 09:25 O2 Sat by Pulse Oximetry (%) Laboratory Last Values WBC 8.5 K/mm3 (4.0-10.0) 10/18/17 08:00 RBC 4.64 M/mm3 (4.00-5.60) 10/18/17 08:00 Hgb 14.1 GM/dL (11.7-16.9) 10/18/17 08:00 Hct 42.4 % (35.4-49) 10/18/17 08:00 MCV 91.3 fl (80-96) 10/18/17 08:00 MCH 30.4 pg (25.7-33.7) 10/18/17 08:00 MCHC 33.3 g/dl (32.0-35.9) 10/18/17 08:00 RDW 12.8 % (11.9-15.9) 10/18/17 08:00 Plt Count 195 K/MM3 (134-434) D 10/18/17 08:00 MPV 8.0 fl (7.5-11.1) 10/18/17 08:00 Sodium 140 mmol/L (136-145) 10/18/17 08:00 Potassium 4.2 mmol/L (3.5-5.1) 10/18/17 08:00 Chloride 105 mmol/L (98-107) 10/18/17 08:00 Carbon Dioxide 25 mmol/L (21-32) 10/18/17 08:00 Anion Gap 10 MMOL/L (8-16) 10/18/17 08:00 BUN 12 mg/dL (7-18) 10/18/17 08:00 Creatinine 0.9 mg/dL (0.7-1.3) 10/18/17 08:00 Creat Clearance w eGFR > 60 (>60) 10/18/17 08:00 Random Glucose 102 mg/dL (74-106) D 10/18/17 08:00 Calcium 8.6 mg/dL (8.5-10.1) 10/18/17 08:00 Total Bilirubin 0.3 mg/dL (0.2-1.0) 10/18/17 08:00 AST 22 U/L (15-37) D 10/18/17 08:00 ALT 28 U/L (12-78) 10/18/17 08:00 Alkaline Phosphatase 88 U/L (45-117) 10/18/17 08:00 Total Protein 6.8 g/dl (6.4-8.2) 10/18/17 08:00 Albumin 3.1 g/dl (3.4-5.0) L 10/18/17 08:00 Urine Color Straw 10/17/17 14:29 Urine Appearance Clear 10/17/17 14:29 Urine pH 5.0 (5.0-8.0) 10/17/17 14:29 Ur Specific [place] 1.005 (1.001-1.035) 10/17/17 14:29 Urine Protein Negative (NEGATIVE) 10/17/17 14:29 Urine Glucose (UA) Negative (NEGATIVE) 10/17/17 14:29 Urine Ketones Negative (NEGATIVE) 10/17/17 14:29 Urine Blood Negative (NEGATIVE) 10/17/17 14:29 Urine Nitrite Negative (NEGATIVE) 10/17/17 14:29 Urine Bilirubin Negative (<2.0 mg/dL) 10/17/17 14:29 Urine Urobilinogen Negative mg/dL (0.2-1.0) 10/17/17 14:29 Ur Leukocyte Esterase Negative (NEGATIVE) 10/17/17 14:29 RPR Titer Nonreactive (NONREACTIVE) 10/18/17 08:00 lab noted Assessment: 10/20/17 13:11 mild withdrawal sx Plan: medically supervised detox
[2017-10-20] MEDS: chlordiazePOXIDE HCL 10 MG CAPSULE PO SCH ×2 (17:28→22:12)
[2017-10-20] MEDS: hydrOXYzine PAMOATE 25 MG CAPSULE (FP) PO PRN ×2 (17:28→22:12)
[2017-10-20 18:48] VITALS: PULSE 72
[2017-10-20] MEDS: MONTELUKAST NA 10 MG TABLET PO SCH (22:13)
[2017-10-20] MEDS: THIAMINE HCL 100 MG TABLET (FP) PO SCH (22:13)
[2017-10-21] MEDS: chlordiazePOXIDE HCL 10 MG CAPSULE PO SCH ×2 (06:13→10:48)
[2017-10-21 06:24] VITALS: BP 119/72; TEMP 98.3
--- NOTE | 2017-10-21 08:34 | PN ---
BHS Progress Note (SOAP) Subjective: I'm better . Objective: 10/21/17 08:31 Vital Signs Temperature 98.3 F 10/21/17 06:24 Pulse Rate 72 10/21/17 06:24 Respiratory Rate 18 10/21/17 06:24 Blood Pressure 119/72 10/21/17 06:24 O2 Sat by Pulse Oximetry (%) Laboratory Tests 10/17/17 10/18/17 10/18/17 14:29 08:00 08:00 WBC 8.5 RBC 4.64 Hgb 14.1 Hct 42.4 MCV 91.3 MCH 30.4 MCHC 33.3 RDW 12.8 Plt Count 195 D MPV 8.0 Sodium 140 Potassium 4.2 Chloride 105 Carbon Dioxide 25 Anion Gap 10 BUN 12 Creatinine 0.9 Creat Clearance w eGFR > 60 Random Glucose 102 D Calcium 8.6 Total Bilirubin 0.3 AST 22 D ALT 28 Alkaline Phosphatase 88 Total Protein 6.8 Albumin 3.1 L Urine Color Straw Urine Appearance Clear Urine pH 5.0 Ur Specific [place] 1.005 Urine Protein Negative Urine Glucose (UA) Negative Urine Ketones Negative Urine Blood Negative Urine Nitrite Negative Urine Bilirubin Negative Urine Urobilinogen Negative Ur Leukocyte Esterase Negative RPR Titer 10/18/17 08:00 WBC RBC Hgb Hct MCV MCH MCHC RDW Plt Count MPV Sodium Potassium Chloride Carbon Dioxide Anion Gap BUN Creatinine Creat Clearance w eGFR Random Glucose Calcium Total Bilirubin AST ALT Alkaline Phosphatase Total Protein Albumin Urine Color Urine Appearance Urine pH Ur Specific [place] Urine Protein Urine Glucose (UA) Urine Ketones Urine Blood Urine Nitrite Urine Bilirubin Urine Urobilinogen Ur Leukocyte Esterase RPR Titer Nonreactive pt aox3 in nad lying in bed Assessment: 10/21/17 08:32 detox completed cocaine dep. nicotine dep obesity Plan: d/c today to rehab increase fluids
--- NOTE | 2017-10-21 08:35 | DS ---
[facility] Detox Discharge Summary Admission Date: 10/17/17 Discharge Date: 10/21/17 - History Present History: Alcohol Dependence, Cocaine Dependence - Physical Exam Results Vital Signs: Vital Signs Temperature 98.3 F 10/21/17 06:24 Pulse Rate 72 10/21/17 06:24 Respiratory Rate 10/21/17 06:24 Blood Pressure 119/72 10/21/17 06:24 O2 Sat by Pulse Oximetry (%) - Treatment Hospital Course: Detox Protocol Followed, Detoxed Safely, Responded well, Discharged Condition Good - Medication Discharge Medications: Ambulatory Orders Buspirone HCl [Buspar -] 30 mg PO BID #60 tablet 12/26/16 Fluoxetine HCl [Prozac -] 60 mg PO DAILY #30 capsule 12/26/16 traZODone HCL [Desyrel -] 100 mg PO HS PRN #30 tablet 12/26/16 Albuterol Sulfate Inhaler - [Ventolin HFA Inhaler -] 2 puff IH Q4H PRN #1 inhaler 10/20/17 Gabapentin [Neurontin -] 800 mg PO TID PRN #90 capsule 10/20/17 Montelukast Na [Singulair -] 10 mg PO HS #30 tablet 10/20/17 - Diagnosis (1) Nicotine dependence Current Visit: Yes Status: Acute Qualifiers: Nicotine product type: cigarettes Substance use status: uncomplicated Qualified Code(s): F17.210 - Nicotine dependence, cigarettes, uncomplicated (2) Alcohol dependence with uncomplicated withdrawal Current Visit: Yes Status: Chronic (3) Cocaine dependence, uncomplicated Current Visit: Yes Status: Chronic (4) Obesity (BMI 30.0-34.9) Current Visit: Yes Status: Chronic - AMA Did Patient Leave Against Medical Advice: No
[2017-10-21] MEDS: PRENATAL VITAMINS W/ FOLIC ACID TABLET (FP) PO SCH (10:48)
[2017-10-21] MEDS: NICOTINE 21 MG/24 HOURS TOPICAL PATCH TD SCH (10:48)
[2017-10-21] MEDS ORDERED: chlordiazePOXIDE HCL 10 MG CAPSULE PO ONE (11:19)
== END 2017-10-21 13:26 | disposition other institution (70) | DRG 774 ==
LOC: YASAS 11:11 → Y6N 13:43
PROC: HZ2ZZZZ Detoxification Services for Substance Abuse Treatment (ICD-10-PCS; principal; 2017-10-17)
DX: F10.230 Alcohol dependence with withdrawal, uncomplicated (principal); F14.20 Cocaine dependence, uncomplicated; F17.210 Nicotine dependence, cigarettes, uncomplicated; F41.8 Other specified anxiety disorders; J45.909 Unspecified asthma, uncomplicated; E66.9 Obesity, unspecified; Z68.32 Body mass index [BMI] 32.0-32.9, adult; Z87.81 Personal history of (healed) traumatic fracture; Z91.5 Personal history of self-harm
CPT/HCPCS: 36415; 80053; 81003; 85027; 86593; 93005; 93010

== ENCOUNTER 2017-10-21 13:12 | Inpatient (IN) | payer OTHER ==
--- NOTE | 2017-10-21 13:55 | HP ---
Psychiatrist Admission - Data Date of interview: 10/21/17 Admission source: [address] [place] [address] Identifying data: This is the second admission to inpatient rehabilitationn for this 47 yo single father of 22 daughter,resides in [facility],supported by [place]. Medical History: Significant for BARADHA. Psychiatric History: First contact with psychiatrist was in 2008 when he was admitted to [facility] in [facility] due to severe depression,drinking using drugs.Patient was dx with Depressive disorder.Personality disorder,placed on psychotropic medications.he reports non compliance.No more psychiatric hospitalizations,no suicidal attempts.patient sees psychiatrist at [facility] in [facility].Current meds:Prozac 60 mg po daily,Buspar 30 mg po bid,Trazodone 100 mg po hs ,Gabapentin 800 mg po tid. Physical/Sexual Abuse/Trauma History: denies Allergies/Adverse Reactions: Allergies Allergy/AdvReac Type Severity Reaction Status Date / Time bupropion HCl Allergy Severe Rash Verified 10/21/17 14:42 [From Wellbutrin] Date of last physical exam: 10/17/17 Concur with the findings of this exam: Yes - Substance Abuse/Tx History Hx Alcohol Use: Yes (reports drinking since 38 yo,a few packs of beer) Hx Substance Use: Yes (cocaine since 46 yo,marijuana,LSD in the past) Substance Use Type: Alcohol, Cocaine Hx Substance Use Treatment: Yes (completed this program in Dec 2016) Mental Status Exam - Mental Status Exam Alert and Oriented to: Time, Place, Person Cognitive Function: Grossly Intact Patient Appearance: Unkempt Mood: Anxious Affect: Mood Congruent, Labile Patient Behavior: Cooperative Speech Pattern: Clear Voice Loudness: Normal Thought Process: Goal Oriented Thought Disorder: Not Present Hallucinations: Denies Suicidal Ideation: Denies Homicidal Ideation: Denies Insight/Judgement: Fair Sleep: Fair Appetite: Good Muscle strength/Tone: Normal Gait/Station: Normal Psychiatric Findings - Problem List ([place] 1, 2,3) (1) Alcohol dependence Current Visit: Yes Status: Chronic (2) Anal fissure, unspecified Current Visit: Yes Status: Chronic (3) Cocaine dependence Current Visit: Yes Status: Chronic (4) MDD (major depressive disorder), recurrent episode Current Visit: Yes Status: Chronic (5) Nicotine dependence Current Visit: Yes Status: Chronic (6) Substance-induced anxiety disorder Current Visit: Yes Status: Chronic (7) Personality disorder, unspecified Current Visit: Yes Status: Chronic (8) Asthma Current Visit: Yes Status: Chronic (9) GERD (gastroesophageal reflux disease) Current Visit: Yes Status: Chronic (10) Nicotine dependence Current Visit: Yes Status: Chronic Qualifiers: Nicotine product type: cigarettes Substance use status: uncomplicated Qualified Code(s): F17.210 - Nicotine dependence, cigarettes, uncomplicated (11) Obesity (BMI 30.0-34.9) Current Visit: Yes Status: Chronic - Initial Treatment Plan Initial Treatment Plan: Continue current medications as per plan.Will monitor progress.
[2017-10-21] MEDS ORDERED: ACETAMINOPHEN 325 MG TABLET (FP) PO PRN (15:12)
[2017-10-21] MEDS ORDERED: MENTHOL/PHENOL 1 EACH UD MM PRN (15:12)
[2017-10-21] MEDS ORDERED: NICOTINE POLACRILEX 4 MG GUM BUC PRN (15:12)
[2017-10-21] MEDS ORDERED: MAGNESIUM HYDROX 2400MG/30ML ORAL SUSPENSION 30 ML CUP PO PRN (15:12)
[2017-10-21] MEDS ORDERED: MAGNESIUM CITRATE 300 ML BOTTLE PO PRN (15:12)
[2017-10-21] MEDS ORDERED: LOPERAMIDE HCL 2 MG CAPSULE PO PRN (15:12)
[2017-10-21] MEDS ORDERED: guaiFENesin/D-METHORPHAN HB 10 ML UNIT-DOSE CUPS PO PRN (15:12)
[2017-10-21] MEDS ORDERED: P-EPHED 60MG/TRIPROLIDI 2.5MG TABLET PO PRN (15:12)
[2017-10-21] MEDS: GABAPENTIN 400 MG CAPSULE (FP) PO PRN (18:27)
[2017-10-21] MEDS: MONTELUKAST NA 10 MG TABLET PO SCH (21:21)
[2017-10-21] MEDS: THIAMINE HCL 100 MG TABLET (FP) PO SCH (21:21)
[2017-10-21] MEDS: traZODone HCL 100 MG TABLET (FP) PO PRN (21:22)
[2017-10-22] MEDS: PRENATAL VITAMINS W/ FOLIC ACID TABLET (FP) PO SCH (10:02)
[2017-10-22] MEDS: NICOTINE 21 MG/24 HOURS TOPICAL PATCH TD SCH (10:03)
[2017-10-22] MEDS: FLUoxetine HCL 20 MG CAPSULE (FP) PO SCH (10:03)
[2017-10-22] MEDS: GABAPENTIN 400 MG CAPSULE (FP) PO PRN ×2 (10:04→18:58)
[2017-10-22] MEDS: THIAMINE HCL 100 MG TABLET (FP) PO SCH (21:18)
[2017-10-22] MEDS: MONTELUKAST NA 10 MG TABLET PO SCH (21:18)
[2017-10-22] MEDS: traZODone HCL 100 MG TABLET (FP) PO PRN (21:19)
[2017-10-23] MEDS: NICOTINE 21 MG/24 HOURS TOPICAL PATCH TD SCH (10:04)
[2017-10-23] MEDS: FLUoxetine HCL 20 MG CAPSULE (FP) PO SCH (10:04)
[2017-10-23] MEDS: PRENATAL VITAMINS W/ FOLIC ACID TABLET (FP) PO SCH (10:04)
[2017-10-23] MEDS: GABAPENTIN 400 MG CAPSULE (FP) PO PRN (10:05)
[2017-10-23] MEDS: traZODone HCL 100 MG TABLET (FP) PO PRN (21:17)
[2017-10-23] MEDS: MONTELUKAST NA 10 MG TABLET PO SCH (21:17)
[2017-10-23] MEDS: THIAMINE HCL 100 MG TABLET (FP) PO SCH (21:17)
[2017-10-24] MEDS: IBUPROFEN 400 MG TABLET (FP) PO PRN ×2 (02:41→10:23)
[2017-10-24] MEDS: MAG HYDROX/AL HYDROX/SIMETH 30 ML UNIT-DOSE CUP PO PRN (02:42)
[2017-10-24] MEDS: PRENATAL VITAMINS W/ FOLIC ACID TABLET (FP) PO SCH (10:21)
[2017-10-24] MEDS: FLUoxetine HCL 20 MG CAPSULE (FP) PO SCH (10:21)
[2017-10-24] MEDS: NICOTINE 21 MG/24 HOURS TOPICAL PATCH TD SCH (10:22)
[2017-10-24] MEDS: GABAPENTIN 400 MG CAPSULE (FP) PO PRN (10:23)
[2017-10-24] MEDS: THIAMINE HCL 100 MG TABLET (FP) PO SCH (21:17)
[2017-10-24] MEDS: MONTELUKAST NA 10 MG TABLET PO SCH (21:18)
[2017-10-24] MEDS: traZODone HCL 100 MG TABLET (FP) PO PRN (21:18)
[2017-10-25] MEDS: GABAPENTIN 400 MG CAPSULE (FP) PO PRN ×2 (06:17→17:47)
[2017-10-25] MEDS: IBUPROFEN 400 MG TABLET (FP) PO PRN (06:18)
[2017-10-25] MEDS ORDERED: PT OWN MED DRAWER 7, Y5N ONE (09:04)
[2017-10-25] MEDS: NICOTINE 21 MG/24 HOURS TOPICAL PATCH TD SCH (10:16)
[2017-10-25] MEDS: PRENATAL VITAMINS W/ FOLIC ACID TABLET (FP) PO SCH (10:16)
[2017-10-25] MEDS: FLUoxetine HCL 20 MG CAPSULE (FP) PO SCH (10:16)
[2017-10-25] MEDS: MONTELUKAST NA 10 MG TABLET PO SCH (21:28)
[2017-10-25] MEDS: THIAMINE HCL 100 MG TABLET (FP) PO SCH (21:28)
[2017-10-25] MEDS: MELATONIN 5 MG TABLETS PO PRN (21:28)
[2017-10-25] MEDS: traZODone HCL 100 MG TABLET (FP) PO PRN (21:29)
[2017-10-26] MEDS: FLUoxetine HCL 20 MG CAPSULE (FP) PO SCH (10:24)
[2017-10-26] MEDS: PRENATAL VITAMINS W/ FOLIC ACID TABLET (FP) PO SCH (10:24)
[2017-10-26] MEDS: NICOTINE 21 MG/24 HOURS TOPICAL PATCH TD SCH (10:25)
[2017-10-26] MEDS: GABAPENTIN 400 MG CAPSULE (FP) PO PRN (14:01)
[2017-10-26] MEDS: IBUPROFEN 400 MG TABLET (FP) PO PRN (20:06)
[2017-10-26] MEDS: ALBUTEROL SO4 8 GM HFA INHALER IH PRN (20:07)
[2017-10-26] MEDS: THIAMINE HCL 100 MG TABLET (FP) PO SCH (21:33)
[2017-10-26] MEDS: MONTELUKAST NA 10 MG TABLET PO SCH (21:33)
[2017-10-26] MEDS: traZODone HCL 100 MG TABLET (FP) PO PRN (21:33)
[2017-10-27] MEDS: FLUoxetine HCL 20 MG CAPSULE (FP) PO SCH (10:02)
[2017-10-27] MEDS: GABAPENTIN 400 MG CAPSULE (FP) PO PRN ×2 (10:02→21:19)
[2017-10-27] MEDS: PRENATAL VITAMINS W/ FOLIC ACID TABLET (FP) PO SCH (10:03)
[2017-10-27] MEDS: NICOTINE 21 MG/24 HOURS TOPICAL PATCH TD SCH (10:03)
[2017-10-27] MEDS: THIAMINE HCL 100 MG TABLET (FP) PO SCH (21:18)
[2017-10-27] MEDS: traZODone HCL 100 MG TABLET (FP) PO PRN (21:18)
[2017-10-27] MEDS: MONTELUKAST NA 10 MG TABLET PO SCH (21:18)
[2017-10-28] MEDS: ALBUTEROL SO4 8 GM HFA INHALER IH PRN ×2 (00:43→18:49)
[2017-10-28] MEDS: PRENATAL VITAMINS W/ FOLIC ACID TABLET (FP) PO SCH (09:59)
[2017-10-28] MEDS: FLUoxetine HCL 20 MG CAPSULE (FP) PO SCH (10:00)
[2017-10-28] MEDS: NICOTINE 21 MG/24 HOURS TOPICAL PATCH TD SCH (10:00)
[2017-10-28] MEDS: MAG HYDROX/AL HYDROX/SIMETH 30 ML UNIT-DOSE CUP PO PRN (10:01)
[2017-10-28] MEDS: GABAPENTIN 400 MG CAPSULE (FP) PO PRN ×2 (10:01→21:23)
[2017-10-28] MEDS: MONTELUKAST NA 10 MG TABLET PO SCH (21:22)
[2017-10-28] MEDS: THIAMINE HCL 100 MG TABLET (FP) PO SCH (21:22)
[2017-10-28] MEDS: traZODone HCL 100 MG TABLET (FP) PO PRN (21:22)
[2017-10-29] MEDS: MELATONIN 5 MG TABLETS PO PRN ×2 (01:17→21:21)
[2017-10-29] MEDS: ALBUTEROL SO4 8 GM HFA INHALER IH PRN (01:17)
[2017-10-29] MEDS: FLUoxetine HCL 20 MG CAPSULE (FP) PO SCH (10:06)
[2017-10-29] MEDS: PRENATAL VITAMINS W/ FOLIC ACID TABLET (FP) PO SCH (10:07)
[2017-10-29] MEDS: NICOTINE 21 MG/24 HOURS TOPICAL PATCH TD SCH (10:07)
[2017-10-29] MEDS: GABAPENTIN 400 MG CAPSULE (FP) PO PRN ×2 (10:07→19:02)
[2017-10-29] MEDS: MONTELUKAST NA 10 MG TABLET PO SCH (21:20)
[2017-10-29] MEDS: THIAMINE HCL 100 MG TABLET (FP) PO SCH (21:20)
[2017-10-29] MEDS: traZODone HCL 100 MG TABLET (FP) PO PRN (21:20)
[2017-10-30] MEDS: PRENATAL VITAMINS W/ FOLIC ACID TABLET (FP) PO SCH (09:55)
[2017-10-30] MEDS: FLUoxetine HCL 20 MG CAPSULE (FP) PO SCH (09:56)
[2017-10-30] MEDS: GABAPENTIN 400 MG CAPSULE (FP) PO PRN ×2 (09:56→21:25)
[2017-10-30] MEDS: NICOTINE 21 MG/24 HOURS TOPICAL PATCH TD SCH (09:56)
[2017-10-30] MEDS: THIAMINE HCL 100 MG TABLET (FP) PO SCH (21:24)
[2017-10-30] MEDS: MONTELUKAST NA 10 MG TABLET PO SCH (21:25)
[2017-10-30] MEDS: MELATONIN 5 MG TABLETS PO PRN (23:48)
[2017-10-30] MEDS: traZODone HCL 100 MG TABLET (FP) PO PRN (23:49)
[2017-10-31] MEDS: GABAPENTIN 400 MG CAPSULE (FP) PO PRN ×2 (09:54→19:04)
[2017-10-31] MEDS: FLUoxetine HCL 20 MG CAPSULE (FP) PO SCH (09:54)
[2017-10-31] MEDS: NICOTINE 21 MG/24 HOURS TOPICAL PATCH TD SCH (09:55)
[2017-10-31] MEDS: PRENATAL VITAMINS W/ FOLIC ACID TABLET (FP) PO SCH (09:55)
[2017-10-31] MEDS: THIAMINE HCL 100 MG TABLET (FP) PO SCH (21:25)
[2017-10-31] MEDS: MONTELUKAST NA 10 MG TABLET PO SCH (21:25)
[2017-10-31] MEDS: MELATONIN 5 MG TABLETS PO PRN (23:36)
[2017-10-31] MEDS: traZODone HCL 100 MG TABLET (FP) PO PRN (23:36)
[2017-11-01] MEDS: GABAPENTIN 400 MG CAPSULE (FP) PO PRN ×2 (07:58→14:31)
[2017-11-01] MEDS: FLUoxetine HCL 20 MG CAPSULE (FP) PO SCH (10:58)
[2017-11-01] MEDS: PRENATAL VITAMINS W/ FOLIC ACID TABLET (FP) PO SCH (10:58)
[2017-11-01] MEDS: NICOTINE 21 MG/24 HOURS TOPICAL PATCH TD SCH (10:58)
--- NOTE | 2017-11-01 13:04 | PN ---
Psychiatric Progress Note Vital Signs: Vital Signs Period Temp Pulse Resp BP Sys/Davis Pulse Ox Last 24 Hr 97.7 F 72 18-20 113/71 Date of Session: 11/01/17 Chief Complaint:: Discharge Note HPI: Patient addressing Alcohol and Cocaine dependence comorbid with Nicotine dependence, MDD, Substance-Induced anxiety disorder and Personality Disorder ROS: Anal fissure, asthma, GERD Current Medications: Active Medications Generic Name Dose Route Start Last Admin Trade Name Freq PRN Reason Stop Dose Admin Acetaminophen 650 mg 10/21/17 15:12 10/25/17 02:28 Tylenol - PO 650 mg Q4H PRN Administration FEVER Al Hydroxide/Mg Hydroxide 30 ml 10/21/17 15:12 10/28/17 10:01 Mylanta Oral Suspension - PO 30 ml Q6H PRN Administration DYSPEPSIA Albuterol Sulfate 2 puff 10/21/17 15:12 10/29/17 01:17 Ventolin Hfa Inhaler - IH 2 puff Q4H PRN Administration SHORT OF BREATH/WHEEZING Buspirone HCl 30 mg 10/21/17 22:00 11/01/17 10:58 Buspar - PO 30 mg BID MARÍA Administration Eucalyptus/Menthol/Phenol/Sorbitol 1 each 10/21/17 15:12 Cepastat Lozenge - MM Q4H PRN SORE THROAT Fluoxetine HCl 60 mg 10/22/17 10:00 11/01/17 10:58 Prozac - PO 60 mg DAILY MARÍA Administration Gabapentin 800 mg 10/21/17 15:12 11/01/17 07:58 Neurontin - PO 800 mg TID PRN Administration ANXIETY Guaifenesin 10 ml 10/21/17 15:12 Robitussin Dm - PO Q6H PRN COUGH Ibuprofen 400 mg 10/21/17 15:12 10/26/17 20:06 Motrin - PO 400 mg Q6H PRN Administration Pain Level 4-6 Loperamide HCl 4 mg 10/21/17 15:12 Imodium - PO Q6H PRN DIARRHEA Magnesium Citrate 300 ml 10/21/17 15:12 Citroma - PO Q48H PRN CONSTIPATION Magnesium Hydroxide 30 ml 10/21/17 15:12 Milk Of Magnesia - PO DAILY PRN CONSTIPATION Melatonin 5 mg 10/21/17 22:00 10/31/17 23:36 Melatonin PO 5 mg HS PRN Administration INSOMNIA Montelukast Sodium 10 mg 10/21/17 22:00 10/31/17 21:25 Singulair - PO 10 mg HS MARÍA Administration Nicotine 21 mg 10/22/17 10:00 11/01/17 10:58 Nicoderm Patch - TD Not Given DAILY MARÍA Nicotine Polacrilex 4 mg 10/21/17 15:12 Nicorette Gum - BUC Q2H PRN NICOTINE REPLACEMENT RX Multivit/Folic Acid/Iron 1 tab 10/22/17 10:00 11/01/17 10:58 Vitamins (Sjr) - PO 1 tab DAILY MARÍA Administration Pseudoephedrine/Triprolidine 1 combo 10/21/17 15:12 Actifed - PO TID PRN NASAL CONGESTION Thiamine HCl 100 mg 10/21/17 22:00 10/31/17 21:25 Vitamin B1 - PO 100 mg HS MARÍA Administration Trazodone HCl 100 mg 10/21/17 14:14 10/31/17 23:36 Desyrel - PO 100 mg HS PRN Administration INSOMNIA Current Side Effect: No Lab tests ordered: Yes Lab tests reviewed: Yes Provider note:: Patient will complete this program on 11/02/17. He has met his treatment goals and will continue to address his issues in outpatient treatment at [facility] on [address] [place] [address]. Told conventional mortgage underwriter that from his participation in this program, he has learned that mediration and getting in touch with his spirituality will provide him with a better high than the drug. He responded well to Prozac 60 mg po daily, Buspar 30 mg po BID, Trazadone 100 mg po HS and Gabapentin 800 mg po TID. Scripts for 30 days supply of medications will be electronically transmitted to [facility] at [address] [place] [address]. He is stable for discharge on 11/02/17 Total face to face time:: 35 Mental Status Exam - Mental Status Exam Alert and Oriented to: Time, Place, Person Cognitive Function: Fair Patient Appearance: Well Groomed Mood: Hopeful, Euthymic Affect: Appropriate Patient Behavior: Cooperative Speech Pattern: Clear Voice Loudness: Normal Thought Process: Intact Thought Disorder: Not Present Hallucinations: Denies Suicidal Ideation: Denies Homicidal Ideation: Denies Insight/Judgement: Fair Sleep: Fair Muscle strength/Tone: Normal Gait/Station: Normal Psychiatric Treatment Plan - Problem List (1) Alcohol dependence Current Visit: Yes (2) Cocaine dependence Current Visit: Yes (3) Nicotine dependence Current Visit: Yes Qualifiers: Nicotine product type: cigarettes Substance use status: uncomplicated Qualified Code(s): F17.210 - Nicotine dependence, cigarettes, uncomplicated (4) MDD (major depressive disorder), recurrent episode Current Visit: Yes (5) Substance-induced anxiety disorder Current Visit: Yes (6) Personality disorder, unspecified Current Visit: Yes (7) Anal fissure, unspecified Current Visit: Yes (8) Asthma Current Visit: Yes (9) GERD (gastroesophageal reflux disease) Current Visit: Yes (10) Obesity (BMI 30.0-34.9) Current Visit: Yes Initial treatment plan: Patient will be discharged tomorrow and referred to [facility] for outpatient treatment
[2017-11-01] MEDS: ALBUTEROL SO4 8 GM HFA INHALER IH PRN (18:40)
[2017-11-01] MEDS: MONTELUKAST NA 10 MG TABLET PO SCH (21:24)
[2017-11-01] MEDS: THIAMINE HCL 100 MG TABLET (FP) PO SCH (21:24)
[2017-11-01] MEDS: MELATONIN 5 MG TABLETS PO PRN (23:09)
[2017-11-01] MEDS: traZODone HCL 100 MG TABLET (FP) PO PRN (23:09)
[2017-11-02 06:39] VITALS: BP 108/76; PULSE 74; TEMP 97.9
[2017-11-02] MEDS: FLUoxetine HCL 20 MG CAPSULE (FP) PO SCH (10:09)
[2017-11-02] MEDS: PRENATAL VITAMINS W/ FOLIC ACID TABLET (FP) PO SCH (10:10)
[2017-11-02] MEDS: NICOTINE 21 MG/24 HOURS TOPICAL PATCH TD SCH (10:10)
[2017-11-02] MEDS: GABAPENTIN 400 MG CAPSULE (FP) PO PRN (10:11)
== END 2017-11-02 10:15 | disposition home or self-care (01) | DRG 772 ==
LOC: YASAS 13:12 → Y5N 13:13
PROVIDERS: ADMIT Psychiatry & Neurology Psychiatry; ATTEND Psychiatry & Neurology Psychiatry
PROC: HZ42ZZZ Group Counseling for Substance Abuse Treatment, Cognitive-Behavioral (ICD-10-PCS; principal; 2017-10-21)
DX: F10.20 Alcohol dependence, uncomplicated (principal); F14.20 Cocaine dependence, uncomplicated; F17.210 Nicotine dependence, cigarettes, uncomplicated; F33.9 Major depressive disorder, recurrent, unspecified; F19.280 Other psychoactive substance dependence with psychoactive substance-induced anxiety disorder; F60.9 Personality disorder, unspecified; J45.909 Unspecified asthma, uncomplicated; K21.9 Gastro-esophageal reflux disease without esophagitis; K60.2 Anal fissure, unspecified; E66.9 Obesity, unspecified; Z68.31 Body mass index [BMI] 31.0-31.9, adult
CPT/HCPCS: 82962